=== PATIENT | male | born 1980 | race Caucasian/White ===

== ENCOUNTER 2016-06-23 16:27 | Emergency (ER) | payer OTHER ==
[~2016-06-23] VITALS: Wt 91.0 kg
[~2016-06-23 16:27] MED LIST: ALPR0.5T PO; AMO500 PO; BEN50 PO; BENA20TA65 PO; CLOT30CR24 TOP; FLUO20CA22 PO; HYD25 PO; IBUP-1542 PO; LORA-441 PO; LORA10CA PO; PANT40TA4 PO; PRED20TA PO; RANI150T9 PO
[2016-06-23] MEDS ORDERED: NAPR-260 PO (17:21)
[2016-06-23] MEDS ORDERED: CETI10CA PO (17:21)
[2016-06-23] MEDS ORDERED: ACET500C5 PO (17:21)
[2016-06-23] MEDS ORDERED: OXYM30MI NASAL (17:23)
--- NOTE | 2016-06-23 18:16 | ERD ---
ER Documentation Chief Complaint Date/Time DATE: 06/23/16 TIME: 18:10 Chief Complaint RIGHT SIDE THROAT PAIN FOR THE PAST FEW DAYS NO FEVERS. HPI Patient is a 35-year-old male with a history of anxiety who presents to the ED with right-sided throat pain x 4 days. He states that he had a cough, runny nose this month. He denies difficulty swallowing or pain with swallowing. He denies difficulty breathing. He denies difficulty speaking. He states that he feels a lump on the right side of his throat. He denies fever or chills. He denies ear pain, headache, dizziness. He denies abdominal pain, nausea, vomiting or diarrhea. He also complains of nasal congestion in the mornings. And slight Jose Juan itchy throat. He denies chest pain, cough or shortness of breath. No other complaints today. ROS All systems reviewed and are negative except as per history of present illness. Medications Home Meds Active Scripts Oxymetazoline Hcl ([place]) 30 Ml Mist, 2 SPRAYS NASAL BID, #1 BOTTLE Prov:VIRGILIO FERRIS PA-C 06/23/16 Acetaminophen* (Tylophen*) 500 Mg Capsule, 1 CAP PO Q6H Y for PAIN AND OR ELEVATED TEMP, #20 CAP Prov:VIRGILIO FERRIS PA-C 06/23/16 Naproxen* (Naprosyn*) 500 Mg Tablet, 500 MG PO BID Y for PAIN AND/OR INFLAMMATION, #30 TAB Prov:VIRGILIO FERRIS PA-C 06/23/16 Cetirizine Hcl* (Zyrtec*) 10 Mg Capsule, 10 MG PO DAILY, #30 TAB.CHEW Prov:VIRGILIO FERRIS PA-C 06/23/16 Clotrimazole* (Clotrimazole* AF) 1% - 30 Gm Cream.gm., 1 APPLIC TOP BID for 7 Days, TUB Prov:DAVE LARIOS PA-C 05/03/16 Ibuprofen* (Motrin*) 600 Mg Tab, 600 MG PO Q6H Y for PAIN AND OR ELEVATED TEMP, #30 TAB Prov:KRYSTLE HERRERA NP 04/22/16 Amoxicillin* (Amoxicillin*) 500 Mg Cap, 500 MG PO TID for 7 Days, CAP Prov:OCTAVIA RACHEL PA-C 02/21/16 Ibuprofen* (Motrin*) 600 Mg Tab, 600 MG PO Q6, #20 TAB Prov:OCTAVIA RACHEL PA-C 02/21/16 Ibuprofen* (Motrin*) 600 Mg Tab, 600 MG PO Q6, #20 TAB Prov:OCTAVIA RACHEL PA-C 01/23/16 Diphenhydramine Hcl* (Benadryl*) 50 Mg Cap, 50 MG PO Q6H Y for ALLERGIC REACTION , #30 CAP Prov:OLEKSANDRNADEEN DO 07/20/15 Ranitidine Hcl* (Zantac*) 150 Mg Tablet, 150 MG PO BID for EPIGASTRIC PAIN, #30 TAB Prov:OLEKSANDR,NADEEN 07/20/15 Prednisone* (Prednisone*) 20 Mg Tab, 60 MG PO DAILY, #15 TAB take 60 mg for 3 days, then 40 mg for 4 days, then 30 mg for 3 days. Prov:NADEEN LEGGETT DO 07/20/15 Benazepril Hcl* (Lotensin*) 20 Mg Tablet, 20 MG PO DAILY, #30 TAB Prov:DEVIN WYATT MD 06/21/15 Fluoxetine Hcl* (Fluoxetine Hcl*) 20 Mg Capsule, 20 MG PO DAILY, #30 CAP Prov:DEVIN WYATT MD 06/21/15 Lorazepam* (Ativan*) 0.5 Mg Tablet, 0.5 MG PO BID, #14 TAB Prov:DEVIN WYATT MD 06/21/15 Hydrochlorothiazide* (Hydrochlorothiazide*) 25 Mg Tab, 25 MG PO DAILY, #30 TAB Prov:EDWINA MINOR MD 06/20/15 Alprazolam* (Xanax*) 0.5 Mg Tab, 0.5 MG PO Q8H Y for ANXIETY, #10 TAB Prov:CAROLYN DOCKERY PA-C 06/14/15 Loratadine* (Claritin*) 10 Mg Capsule, 10 MG PO DAILY, #30 CAP Prov:KRYSTLE HERRERA NP 05/01/15 Reported Medications Pantoprazole (Protonix) 40 Mg Tabec, 40 PO DAILY, TAB 06/21/15 Allergies Allergies: Coded Allergies: paroxetine (Verified Allergy, Unknown, headache, 05/03/16) PMhx/Soc History of Surgery: No Anesthesia Reaction: No Hx Neurological Disorder: No Hx Respiratory Disorders: No Hx Cardiac Disorders: No Hx Psychiatric Problems: Yes (DEPRESSION, ANXIETY) Hx Alcohol Use: No Hx Substance Use: No Hx Tobacco Use: Yes FmHx Family History: No coronary disease, No diabetes, No other Physical Exam Vitals Vital Signs Date Time Temp Pulse Resp B/P Pulse Ox O2 Delivery O2 Flow Rate FiO2 06/23/16 16:35 98.1 74 20 137/75 98 Physical Exam GENERAL: Well-developed, well-nourished male. Appears in no acute distress. HEAD: Normocephalic, atraumatic. EYES: Pupils are equally reactive bilaterally. EOMs grossly intact. No conjunctival erythema. ENT: Moist mucous membranes. No uvula deviation. No kissing tonsils. No exudates. NECK: Supple. No or thyromegaly. No meningismus. negative kernig. negative brudinski. tenderness to the right side of his throat. no ertyema, no exudates. no signs of infection. no tooth pain. swollen submandibular lymph node. LUNG: Clear to auscultation bilaterally. No rhonchi, wheezing, rales or coarse breath sounds. HEART: Regular rate and rhythm. No murmurs, rubs or gallops. ABDOMEN: No scars, ecchymosis or rashes noted. Soft, nontender, and nondistended. Positive bowel sounds in all four quadrants. No rebound tenderness , no guarding. (-) McBurneys point tenderness. No CVA tenderness. BACK: No midline tenderness. Extremities: Equal pulses bilaterally. No peripheral clubbing, cyanosis or edema. No unilateral leg swelling. NEUROLOGIC: Alert and oriented. Moving all four extremities. 5/5 strength in all extremities. Normal speech. Steady gait. SKIN: Normal color. Warm and dry. No rashes or lesions. Capillary refill < 2 seconds Procedures/MDM ER COURSE: I kept the patient and/or family informed of laboratory and diagnostic imaging results throughout the emergency room course. MEDICAL DECISION MAKING: This is a 35-year-old male who presents with neck pain. Vital signs were reviewed. Patient is afebrile. Patient is not hypoxic. Patient likely has a swollen submandibular node. Patient has a viral URI. Low suspicion for pneumonia, PE, pneumothorax, ACS, epiglottitis, obstruction, TB, pertussis, meningitis, sepsis. Low suspicion for dislocation, fracture, epidural abscess, herniation, osteomyelitis, meningitis, neurological deficit. Low suspicion for peritonsillar abscess, strep pharyngitis, mononucleosis, dental abscess. I do not think a CT scan is warranted at this time as patient is afebrile and I have low suspicion for abscess. DISCHARGE: At this time, patient is stable for discharge and outpatient management with no new complaints during the ER course. Patient was sent home with Zyrtec, nasal spray, Tylenol, Naprosyn. Patient will be discharged home with instructions to recheck for new or worsening symptoms such as fever, nausea, weakness, LOC and to follow up with primary care in the next 1-2 days. Patient was advised to return to the ER for any new or worsening symptoms. Plan was discussed and patient and/or family understands and agrees. Home instructions were given. Departure Diagnosis: Primary Impression: Lymphadenopathy Additional Impression: Sore throat Condition: Stable Patient Instructions: When You Have a Sore Throat, When Your Child Has Swollen Lymph Nodes Additional Instructions: Call your primary care doctor TOMORROW for an appointment during the next 1-2 days.See the doctor sooner or return here if your condition worsens before your appointment time. VIRGILIO FERRIS PA-C Jun 23, 2016 18:16
== END 2016-06-23 17:23 | disposition home or self-care (01) ==
LOC: FTE 16:27 → E/R 17:23
DX: R59.1 Generalized enlarged lymph nodes (principal); J02.9 Acute pharyngitis, unspecified; Z72.0 Tobacco use
CPT/HCPCS: 99283

== ENCOUNTER 2016-08-05 07:56 | Emergency (ER) | payer OTHER ==
[~2016-08-05] VITALS: Ht 175.3 cm; Wt 92.2 kg
[~2016-08-05 07:56] MED LIST changes: +ACET500C5 PO; +CETI10CA PO; +NAPR-260 PO; +OXYM30MI NASAL
[2016-08-05 07:57] VITALS: Ht 175.3 cm; Wt 92.2 kg
[2016-08-05] MEDS ORDERED: SODI30SP2 NS (08:24)
[2016-08-05] MEDS ORDERED: LORA-186 PO (08:24)
[2016-08-05] MEDS ORDERED: FLUT9.9S NASAL (08:24)
--- NOTE | 2016-08-05 08:29 | ERD ---
ER Documentation Chief Complaint Date/Time DATE: 08/05/16 TIME: 08:26 Chief Complaint sore thraot x 1 wk HPI This is a 36-year-old male with a history of anxiety presenting to the emergency department for complaining of a sore throat for the past week. Patient rates the pain moderate in severity, and states that it is worse in the morning. Patient admits to having cough and coughing up phlegm in the mornings. Patient denies any fevers. He states that he has tried naproxen, ibuprofen and Tylenol without any relief. ROS All systems reviewed and are negative except as per history of present illness. Medications Home Meds Active Scripts Sodium Chloride (Saline Nasal [place]) 30 Ml [place], 30 ML NS BID, #1 SPRAY Prov:SURY HOFFMAN PA-C 08/05/16 Fluticasone Propionate (Flonase Allergy Relief) 9.9 Ml [place].susp, 1 SPRAY NASAL BID for 14 Days, #1 BOTTLE TO EACH NOSTRIL Prov:SURY HOFFMAN PA-C 08/05/16 Loratadine* (Claritin*) 10 Mg Tablet, 10 MG PO DAILY, #30 TAB Prov:SURY HOFFMAN PA-C 08/05/16 Oxymetazoline Hcl (Nasal [place]) 30 Ml Mist, 2 SPRAYS NASAL BID, #1 BOTTLE Prov:VIRGILIO FERRIS PA-C 06/23/16 Acetaminophen* (Tylophen*) 500 Mg Capsule, 1 CAP PO Q6H Y for PAIN AND OR ELEVATED TEMP, #20 CAP Prov:VIRGILIO FERRIS PA-C 06/23/16 Naproxen* (Naprosyn*) 500 Mg Tablet, 500 MG PO BID Y for PAIN AND/OR INFLAMMATION, #30 TAB Prov:VIRGILIO FERRIS PA-C 06/23/16 Cetirizine Hcl* (Zyrtec*) 10 Mg Capsule, 10 MG PO DAILY, #30 TAB.CHEW Prov:VIRGILIO FERRIS PA-C 06/23/16 Clotrimazole* (Clotrimazole* AF) 1% - 30 Gm Cream.gm., 1 APPLIC TOP BID for 7 Days, TUB Prov:DAVE LARIOS PA-C 05/03/16 Ibuprofen* (Motrin*) 600 Mg Tab, 600 MG PO Q6H Y for PAIN AND OR ELEVATED TEMP, #30 TAB Prov:KRYSTLE HERRERA NP 04/22/16 Amoxicillin* (Amoxicillin*) 500 Mg Cap, 500 MG PO TID for 7 Days, CAP Prov:OCTAVIA RACHEL PA-C 02/21/16 Ibuprofen* (Motrin*) 600 Mg Tab, 600 MG PO Q6, #20 TAB Prov:OCTAVIA RACHEL PA-C 02/21/16 Ibuprofen* (Motrin*) 600 Mg Tab, 600 MG PO Q6, #20 TAB Prov:OCTAVIA RACHEL PA-C 01/23/16 Diphenhydramine Hcl* (Benadryl*) 50 Mg Cap, 50 MG PO Q6H Y for ALLERGIC REACTION , #30 CAP Prov:NADEEN LEGGETT DO 07/20/15 Ranitidine Hcl* (Zantac*) 150 Mg Tablet, 150 MG PO BID for EPIGASTRIC PAIN, #30 TAB Prov:NADEEN LEGGETT DO 07/20/15 Prednisone* (Prednisone*) 20 Mg Tab, 60 MG PO DAILY, #15 TAB take 60 mg for 3 days, then 40 mg for 4 days, then 30 mg for 3 days. Prov:NADEEN LEGGETT DO 07/20/15 Benazepril Hcl* (Lotensin*) 20 Mg Tablet, 20 MG PO DAILY, #30 TAB Prov:DEVIN WYATT MD 06/21/15 Fluoxetine Hcl* (Fluoxetine Hcl*) 20 Mg Capsule, 20 MG PO DAILY, #30 CAP Prov:DEVIN WYATT MD 06/21/15 Lorazepam* (Ativan*) 0.5 Mg Tablet, 0.5 MG PO BID, #14 TAB Prov:DEVIN WYATT MD 06/21/15 Hydrochlorothiazide* (Hydrochlorothiazide*) 25 Mg Tab, 25 MG PO DAILY, #30 TAB Prov:EDWINA MINOR MD 06/20/15 Alprazolam* (Xanax*) 0.5 Mg Tab, 0.5 MG PO Q8H Y for ANXIETY, #10 TAB Prov:CAROLYN DOCKERY PA-C 06/14/15 Loratadine* (Claritin*) 10 Mg Capsule, 10 MG PO DAILY, #30 CAP Prov:KRYSTLE HERRERA [employer] 05/01/15 Reported Medications Pantoprazole (Protonix) 40 Mg Tabec, 40 PO DAILY, TAB 06/21/15 Allergies Allergies: Coded Allergies: paroxetine (Verified Allergy, Unknown, headache, 08/05/16) PMhx/Soc History of Surgery: No Anesthesia Reaction: No Hx Neurological Disorder: No Hx Respiratory Disorders: No Hx Cardiac Disorders: No Hx Psychiatric Problems: Yes (DEPRESSION, ANXIETY) Hx Alcohol Use: No Hx Substance Use: No Hx Tobacco Use: Yes Smoking Status: Current every day smoker Physical Exam Vitals Vital Signs Date Time Temp Pulse Resp B/P Pulse Ox O2 Delivery O2 Flow Rate FiO2 08/05/16 07:57 98.3 69 19 143/101 93 Physical Exam GENERAL: well-developed/well-nourished, in no apparent distress, non-toxic appearing HEAD: NC/AT, no swelling noted in frontal or maxillary areas EARS: bilateral tympanic membrane is intact without erythema or effusion NARES:congested THROAT: oropharynx non-erythematous without exudates, no tonsil enlargement, post nasal drip EYES: Conjunctiva normal NECK: Supple, no lymphadenopathy PULM: CTA bilaterally, no rales, rhonchi, or wheezing heard CV: Normal S1S2, RRR, good capillary refill GI: Soft, non-distended, normal bowel sounds, non-tender BACK: No midline tenderness, no masses EXT No clubbing, cyanosis, or edema NEURO: Alert and Orientated SKIN: Intact, normal turgor PSYCH: Normal mood and mentation Procedures/MDM This is a 36-year-old male presenting to the emergency department complaining of sore throat for the past week. This is likely due to viral versus allergic upper respiratory infection with postnasal drip. On examination patient did not have any evidence of strep pharyngitis, peritonsillar abscess, retropharyngeal abscess, Elliott's angina. Patient is afebrile, speaking clearly and appears well. Patient is suitable to follow-up with his primary care physician for further action management. Prescriptions Claritin, Flonase and saline nasal spray was provided. Discussed to continue ibuprofen as needed. Discussed return to the ER for any worsening signs or symptoms. Patient understands and agrees with this plan Departure Diagnosis: Primary Impression: URI (upper respiratory infection) URI type: unspecified viral URI Qualified Code: J06.9 - Viral upper respiratory tract infection Additional Impression: Post-nasal drip Condition: Stable Patient Instructions: Self-Care for Sinusitis, Uri, Viral, No Abx (Adult) Additional Instructions: FOLLOW UP WITH YOUR PRIMARY CARE PHYSICIAN TOMORROW.Return to this facility if you are not improving as expected. Take all medicines as directed. Return to this facility if you are not improving as expected. SURY HOFFMAN PA-C Aug 05, 2016 08:29
== END 2016-08-05 08:29 | disposition home or self-care (01) ==
LOC: FTE 07:56
DX: J06.9 Acute upper respiratory infection, unspecified (principal); R09.82 Postnasal drip; F17.210 Nicotine dependence, cigarettes, uncomplicated
CPT/HCPCS: 99283

== ENCOUNTER 2016-08-29 15:07 | Emergency (ER) | payer OTHER ==
[~2016-08-29] VITALS: Ht 170.2 cm; Wt 80.0 kg
[~2016-08-29 15:07] MED LIST changes: +FLUT9.9S NASAL; +LORA-186 PO; +SODI30SP2 NS
[2016-08-29 15:12] VITALS: Ht 170.2 cm; Wt 80.0 kg
[2016-08-29] MEDS ORDERED: VIT1TABL28 PO (16:00)
--- NOTE | 2016-08-29 16:11 | ERD ---
ER Documentation Chief Complaint Date/Time DATE: 08/29/16 TIME: 16:03 Chief Complaint etoh last night now feels anxious HPI 36-year-old otherwise healthy male presents the emergency department complaining of anxiety which she describes as a racing heart and headache. Patient states he experiences these symptoms every times he drinks alcohol. Patient states that last night he drank 3, 40 ounce bottles of beer and woke up this morning with a headache, cold sweat and racing heart. Patient denies any prior cardiac history but does note a history of anxiety in the past for which she has been prescribed Prozac. Patient states he was successfully able to wean himself off Prozac last year and since that time his anxiety has remained under control. He states the only time he experiences anxiety now is when he drinks alcohol has a hangover. Patient denies any chest pain, shortness of breath, calf or leg swelling, cardiac history. Patient denies any sudden due to cardiac disease among his immediate family. Patient denies any suicidal thoughts and states he does not feel depressed. ROS All systems reviewed and are negative except as per history of present illness. Medications Home Meds Active Scripts Vit B Cmplx 3/Fa/Vit C/Biotin (VOL-CARE RX TABLET) 1 Each Tablet, 1 EACH PO DAILY for 30 Days, TAB Prov:RUDOLPH MARADIAGA PA-C 08/29/16 Sodium Chloride (Saline Nasal [place]) 30 Ml [place], 30 ML NS BID, #1 SPRAY Prov:SURY HOFFMAN PA-C 08/05/16 Fluticasone Propionate (Flonase Allergy Relief) 9.9 Ml [place].susp, 1 SPRAY NASAL BID for 14 Days, #1 BOTTLE TO EACH NOSTRIL Prov:SURY HOFFMAN PA-C 08/05/16 Loratadine* (Claritin*) 10 Mg Tablet, 10 MG PO DAILY, #30 TAB Prov:SURY HOFFMAN PA-C 08/05/16 Oxymetazoline Hcl (Nasal [place]) 30 Ml Mist, 2 SPRAYS NASAL BID, #1 BOTTLE Prov:VIRGILIO FERRIS PA-C 06/23/16 Acetaminophen* (Tylophen*) 500 Mg Capsule, 1 CAP PO Q6H Y for PAIN AND OR ELEVATED TEMP, #20 CAP Prov:VIRGILIO FERRIS PA-C 06/23/16 Naproxen* (Naprosyn*) 500 Mg Tablet, 500 MG PO BID Y for PAIN AND/OR INFLAMMATION, #30 TAB Prov:VIRGILIO FERRIS PA-C 06/23/16 Cetirizine Hcl* (Zyrtec*) 10 Mg Capsule, 10 MG PO DAILY, #30 TAB.CHEW Prov:VIRGILIO FERRIS PA-C 06/23/16 Clotrimazole* (Clotrimazole* AF) 1% - 30 Gm Cream.gm., 1 APPLIC TOP BID for 7 Days, TUB Prov:DAVE LARIOS PA-C 05/03/16 Ibuprofen* (Motrin*) 600 Mg Tab, 600 MG PO Q6H Y for PAIN AND OR ELEVATED TEMP, #30 TAB Prov:KRYSTLE HERRERA NP 04/22/16 Amoxicillin* (Amoxicillin*) 500 Mg Cap, 500 MG PO TID for 7 Days, CAP Prov:OCTAVIA RACHEL PA-C 02/21/16 Ibuprofen* (Motrin*) 600 Mg Tab, 600 MG PO Q6, #20 TAB Prov:OCTAVIA RACHEL PA-C 02/21/16 Ibuprofen* (Motrin*) 600 Mg Tab, 600 MG PO Q6, #20 TAB Prov:OCTAVIA RACHEL PA-C 01/23/16 Diphenhydramine Hcl* (Benadryl*) 50 Mg Cap, 50 MG PO Q6H Y for ALLERGIC REACTION , #30 CAP Prov:NADEEN LEGGETT DO 07/20/15 Ranitidine Hcl* (Zantac*) 150 Mg Tablet, 150 MG PO BID for EPIGASTRIC PAIN, #30 TAB Prov:NADEEN LEGGETT DO 07/20/15 Prednisone* (Prednisone*) 20 Mg Tab, 60 MG PO DAILY, #15 TAB take 60 mg for 3 days, then 40 mg for 4 days, then 30 mg for 3 days. Prov:NADEEN LEGGETT DO 07/20/15 Benazepril Hcl* (Lotensin*) 20 Mg Tablet, 20 MG PO DAILY, #30 TAB Prov:DEVIN WYATT MD 06/21/15 Fluoxetine Hcl* (Fluoxetine Hcl*) 20 Mg Capsule, 20 MG PO DAILY, #30 CAP Prov:DEVIN WYATT MD 06/21/15 Lorazepam* (Ativan*) 0.5 Mg Tablet, 0.5 MG PO BID, #14 TAB Prov:DEVIN WYATT MD 06/21/15 Hydrochlorothiazide* (Hydrochlorothiazide*) 25 Mg Tab, 25 MG PO DAILY, #30 TAB Prov:EDWINA MINOR MD 06/20/15 Alprazolam* (Xanax*) 0.5 Mg Tab, 0.5 MG PO Q8H Y for ANXIETY, #10 TAB Prov:CAROLYN DOCKERY PA-C 06/14/15 Loratadine* (Claritin*) 10 Mg Capsule, 10 MG PO DAILY, #30 CAP Prov:KRYSTLE HERRERA NP 05/01/15 Reported Medications Pantoprazole (Protonix) 40 Mg Tabec, 40 PO DAILY, TAB 06/21/15 Allergies Allergies: Coded Allergies: paroxetine (Verified Allergy, Unknown, headache, 08/05/16) PMhx/Soc History of Surgery: No Anesthesia Reaction: No Hx Neurological Disorder: No Hx Respiratory Disorders: No Hx Cardiac Disorders: No Hx Psychiatric Problems: Yes (DEPRESSION, ANXIETY) Hx Alcohol Use: No Hx Substance Use: No Hx Tobacco Use: Yes Physical Exam Vitals Vital Signs Date Time Temp Pulse Resp B/P Pulse Ox O2 Delivery O2 Flow Rate FiO2 08/29/16 15:12 98.1 99 18 132/90 99 Physical Exam Const: Well-developed, well-nourished, in no acute distress Head: Atraumatic Eyes: Normal Conjunctiva ENT: Normal External Ears, Nose and Mouth. Neck: Full range of motion..~ No meningismus. Resp: Clear to auscultation bilaterally Cardio: Regular rate and rhythm, no murmurs Abd: Soft, non tender, non distended. Normal bowel sounds Skin: No petechiae or rashes Back: No midline or flank tenderness Ext: No cyanosis, or edema Neur: Awake and alert Psych: Normal Mood and Affect Procedures/MDM Patient seen and evaluated in the flu track today EKG: Rate/Rhythm: Normal Sinus Rhythm QRS, ST, T-waves: No changes consistent w/ acute ischemia Impression: No evidence of ischemia or arrhythmia 36-year-old male presents with complaint of racing heart, and headache after a night of drinking last night. EKG unremarkable for any evidence of acute ischemia. Patient's heart score is 0. I have a low suspicion for acute coronary syndrome, DVT, PE, pneumonia, serious bacterial infection, or sepsis. The patient's headache is unlikely related to serious etiology. The patient does not exhibit any clinical signs or symptoms, and has no risk factors to suggest headache etiology such as subarachnoid hemorrhage, acute vertebral or carotid dissection, intracranial mass, epidural, subdural hematoma, dural venous sinus thrombosis, giant cell arteritis, or pseudotumor cerebri. Patient' s vital signs rechecked and patient was non-tachycardic, normotensive, afebrile and non-hypoxic prior to discharge. Patient presented with normal mood and affect and did not appear to be depressed. Patient denied any thoughts of suicide. Patient instructed to treat his symptoms with Pedialyte, multivitamin and Motrin when he drinks alcohol. I counseled the patient on risks and red flags associated with alcohol use. Based on patient's history of present illness and physical examination the decision was made to discharge. There is no evidence of life threatening injuries or illnesses at this time. On re-examination, patient resting in no distress, stable vital signs, reports feeling better and safe for discharge with outpatient follow up with PMD in 1-2 days. Patient given return precautions. Departure Diagnosis: Primary Impression: Anxiety Additional Impressions: Headache Headache type: unspecified Headache chronicity pattern: acute headache Intractability: not intractable Qualified Code: R51 - Acute nonintractable headache, unspecified headache type Fast heart beat Alcohol use Anxiety disorder Anxiety disorder type: generalized anxiety disorder Qualified Code: F41.1 - Generalized anxiety disorder Condition: Stable Patient Instructions: Anxiety Reaction, Dehydration (6Y-Adult) Additional Instructions: Call your primary care doctor TOMORROW for an appointment during the next 1-2 days.See the doctor sooner or return here if your condition worsens before your appointment time. RUDOLPH MARADIAGA PA-C Aug 29, 2016 16:11
== END 2016-08-29 16:13 | disposition home or self-care (01) ==
LOC: E/R 15:07
DX: F41.9 Anxiety disorder, unspecified (principal); R51 Headache; R00.0 Tachycardia, unspecified; F10.99 Alcohol use, unspecified with unspecified alcohol-induced disorder; F41.1 Generalized anxiety disorder; F17.210 Nicotine dependence, cigarettes, uncomplicated
CPT/HCPCS: 93005; Z7502

== ENCOUNTER 2016-09-11 16:44 | Emergency (ER) | payer OTHER ==
[~2016-09-11] VITALS: Ht 175.3 cm; Wt 92.0 kg
[~2016-09-11 16:44] MED LIST changes: +VIT1TABL28 PO
[2016-09-11 16:56] VITALS: Ht 175.3 cm; Wt 92.0 kg
[2016-09-11] MEDS ORDERED: KETOROLAC 30 MG INJ IM STA (17:36)
[2016-09-11] MEDS ORDERED: LORA10TA3 PO (17:37)
[2016-09-11] MEDS ORDERED: TRAM50TA2 PO (17:37)
--- NOTE | 2016-09-11 17:51 | ERD ---
ER Documentation Chief Complaint Date/Time DATE: 09/11/16 TIME: 17:48 Chief Complaint pt bib self with c/o sore throat x 3 days , cough HPI 36-year-old man complains of left-sided sore throat 3 days. Patient has a history of anxiety and has been here multiple times previously for sore throat. He is requesting analgesics and states he's used ibuprofen, naproxen, Tylenol at home without relief. Patient denies suicidal homicidal ideation, no changes in his voice, no fevers or chills, no vomiting or diarrhea. ROS All systems reviewed and are negative except as per history of present illness. Medications Home Meds Active Scripts Loratadine* (Loratadine*) 10 Mg Tablet, 10 MG PO DAILY for NASAL CONGESTION, # 15 TAB Prov:EDWINA MINOR MD 09/11/16 Tramadol HCl (Tramadol HCl) 50 Mg Tablet, 50 MG PO TID for PAIN LEVEL 6-10, #12 TAB Prov:EDWINA MINOR MD 09/11/16 Vit B Cmplx 3/Fa/Vit C/Biotin (VOL-CARE RX TABLET) 1 Each Tablet, 1 EACH PO DAILY for 30 Days, TAB Prov:RUDOLPH MARADIAGA PA-C 08/29/16 Sodium Chloride (Saline Nasal [place]) 30 Ml [place], 30 ML NS BID, #1 SPRAY Prov:SURY HOFFMAN PA-C 08/05/16 Fluticasone Propionate (Flonase Allergy Relief) 9.9 Ml [place].susp, 1 SPRAY NASAL BID for 14 Days, #1 BOTTLE TO EACH NOSTRIL Prov:SURY HOFFMAN PA-C 08/05/16 Loratadine* (Claritin*) 10 Mg Tablet, 10 MG PO DAILY, #30 TAB Prov:SURY HOFFMAN PA-C 08/05/16 Oxymetazoline Hcl (Nasal [place]) 30 Ml Mist, 2 SPRAYS NASAL BID, #1 BOTTLE Prov:VIRGILIO FERRIS PA-C 06/23/16 Acetaminophen* (Tylophen*) 500 Mg Capsule, 1 CAP PO Q6H Y for PAIN AND OR ELEVATED TEMP, #20 CAP Prov:VIRGILIO FERRIS PA-C 06/23/16 Naproxen* (Naprosyn*) 500 Mg Tablet, 500 MG PO BID Y for PAIN AND/OR INFLAMMATION, #30 TAB Prov:VIRGILIO FERRIS PA-C 06/23/16 Cetirizine Hcl* (Zyrtec*) 10 Mg Capsule, 10 MG PO DAILY, #30 TAB.CHEW Prov:VIRGILIO FERRIS PA-C 06/23/16 Clotrimazole* (Clotrimazole* AF) 1% - 30 Gm Cream.gm., 1 APPLIC TOP BID for 7 Days, TUB Prov:DAVE LARIOS PA-C 05/03/16 Ibuprofen* (Motrin*) 600 Mg Tab, 600 MG PO Q6H Y for PAIN AND OR ELEVATED TEMP, #30 TAB Prov:KRYSTLE HERRERA NP 04/22/16 Amoxicillin* (Amoxicillin*) 500 Mg Cap, 500 MG PO TID for 7 Days, CAP Prov:OCTAVIA RACHEL PA-C 02/21/16 Ibuprofen* (Motrin*) 600 Mg Tab, 600 MG PO Q6, #20 TAB Prov:OCTAVIA RACHEL PA-C 02/21/16 Ibuprofen* (Motrin*) 600 Mg Tab, 600 MG PO Q6, #20 TAB Prov:OCTAVIA RACHEL PA-C 01/23/16 Diphenhydramine Hcl* (Benadryl*) 50 Mg Cap, 50 MG PO Q6H Y for ALLERGIC REACTION , #30 CAP Prov:NADEEN LEGGETT DO 07/20/15 Ranitidine Hcl* (Zantac*) 150 Mg Tablet, 150 MG PO BID for EPIGASTRIC PAIN, #30 TAB Prov:NADEEN LEGGETT DO 07/20/15 Prednisone* (Prednisone*) 20 Mg Tab, 60 MG PO DAILY, #15 TAB take 60 mg for 3 days, then 40 mg for 4 days, then 30 mg for 3 days. Prov:NADEEN LEGGETT DO 07/20/15 Benazepril Hcl* (Lotensin*) 20 Mg Tablet, 20 MG PO DAILY, #30 TAB Prov:DEVIN WYATT MD 06/21/15 Fluoxetine Hcl* (Fluoxetine Hcl*) 20 Mg Capsule, 20 MG PO DAILY, #30 CAP Prov:DEVIN WYATT MD 06/21/15 Lorazepam* (Ativan*) 0.5 Mg Tablet, 0.5 MG PO BID, #14 TAB Prov:DEVIN WYATT MD 06/21/15 Hydrochlorothiazide* (Hydrochlorothiazide*) 25 Mg Tab, 25 MG PO DAILY, #30 TAB Prov:EDWINA MINOR MD 06/20/15 Alprazolam* (Xanax*) 0.5 Mg Tab, 0.5 MG PO Q8H Y for ANXIETY, #10 TAB Prov:CAROLYN DOCKERY PA-C 06/14/15 Loratadine* (Claritin*) 10 Mg Capsule, 10 MG PO DAILY, #30 CAP Prov:KRYSTLE HERRERA NP 05/01/15 Reported Medications Pantoprazole (Protonix) 40 Mg Tabec, 40 PO DAILY, TAB 06/21/15 Allergies Allergies: Coded Allergies: paroxetine (Verified Allergy, Unknown, headache, 08/05/16) PMhx/Soc Chronic anxiety, chronic pharyngitis, chronic pain History of Surgery: No Anesthesia Reaction: No Hx Neurological Disorder: No Hx Respiratory Disorders: No Hx Cardiac Disorders: No Hx Psychiatric Problems: Yes (DEPRESSION, ANXIETY) Hx Alcohol Use: No Hx Substance Use: No Hx Tobacco Use: Yes Smoking Status: Never smoker Physical Exam Vitals Vital Signs Date Time Temp Pulse Resp B/P Pulse Ox O2 Delivery O2 Flow Rate FiO2 09/11/16 16:56 98.9 76 18 141/92 100 Physical Exam GENERAL: Well-developed, well-nourished, well-hydrated, in no apparent distress , looks nontoxic in appearance HEENT: Moist mucous membranes, pink conjunctiva, no cervical spine tenderness or step-off deformities, no goiter, no jaundice or icterus, extraocular movements intact without pain. No submandibular induration, and no pharyngeal erythema NEURO: Alert and oriented 3, cranial nerves II through XII intact bilaterally, pupils equal round reactive to light, no focal deficits or facial asymmetry, sensation intact distally Strength 5/5 in upper and lower extremities bilaterally CARDIAC: Regular rate and rhythm, no murmurs rubs or gallops LUNGS: Clear bilaterally no wheezing crackles or stridor ABDOMEN: Soft nontender, no guarding, no rigidity, no rebound, no psoas sign no obturator sign. Normoactive bowel sounds SKIN: Warm and dry to touch, no abrasions, contusions, or hematomas, no lacerations, no ecchymosis, no target lesions, and without ulcers EXTREMITIES: No clubbing cyanosis or edema, calves are bilaterally symmetrical, no Homans sign, no popliteal cord sign. Distal pulses equal and bilateral PSYCH: Normal affect without agitation or irritability Results 24 hrs Current Medications Medications (Trade) Dose Ordered Sig/Prashant Route PRN Reason Start Time Stop Time Status Last Admin Dose Admin Ketorolac Tromethamine (Toradol) 30 mg ONCE STAT IM 09/11/16 17:36 09/11/16 17:37 DC 09/11/16 17:46 Procedures/MDM I administered Toradol 30 mg intramuscular injection with good pain relief. I recommended patient follow-up with his PMD for continued outpatient management and control of anxiety. Differential diagnoses considered, included but not limited to carotid artery injury, bacterial pharyngitis, peritonsillar abscess, aortic dissection, abdominal aortic aneurysm, sepsis, stroke, meningitis, encephalitis, pneumonia, appendicitis, cholecystitis, bowel obstruction, pyelonephritis, nephrolithiasis , cystitis, as well as metabolic, hematologic, and electrolyte abnormalities. As well as abscess, cellulitis, fractures, and dislocations. Patient feels much better at this time, and vital signs are normal, symptoms have improved. I did give strict instructions to return to the ED if symptoms continue or worsen, patient will otherwise follow-up with primary care physician. Patient understood instructions and agreed to plan. Departure Diagnosis: Primary Impression: Pharyngitis Pharyngitis/tonsillitis etiology: unspecified etiology Qualified Code: J02.9 - Pharyngitis, unspecified etiology Additional Impression: Globus hystericus Condition: Good Patient Instructions: Pharyngitis, Viral EDWINA MINOR MD Sep 11, 2016 17:51
[2016-09-12] MEDS ORDERED: IBUP-1542 PO (21:12)
[2016-09-12] MEDS ORDERED: ONDA4TAB14 PO (21:13)
== END 2016-09-11 17:47 | disposition home or self-care (01) ==
LOC: FTE 16:44
DX: J02.9 Acute pharyngitis, unspecified (principal); F45.8 Other somatoform disorders
CPT/HCPCS: 96372; J1885; Z7502

== ENCOUNTER 2016-09-12 20:41 | Emergency (ER) | payer OTHER ==
[~2016-09-12] VITALS: Ht 172.7 cm; Wt 93.0 kg
[~2016-09-12 20:41] MED LIST changes: +LORA10TA3 PO; +TRAM50TA2 PO
[2016-09-12 21:03] VITALS: Ht 172.7 cm; Wt 93.0 kg
[2016-09-12] MEDS ORDERED: IBUP-1542 PO (21:12)
[2016-09-12] MEDS ORDERED: ONDA4TAB14 PO (21:13)
--- NOTE | 2016-09-12 21:17 | ERD ---
ER Documentation Chief Complaint Date/Time DATE: 09/12/16 TIME: 21:14 Chief Complaint Pt with ST 3 days wants to change his pain medicine. HPI Patient is a 36-year-old male who presents to the emergency department for medication change. Patient states he was seen here yesterday for throat pain. Patient was prescribed tramadol at that time. Patient states the tramadol is making his throat pain worse. Patient is requesting he receive ibuprofen 600 mg instead. Patient denies any drooling, trismus, hyperextension of his neck. Patient denies any fevers, chills, vomiting, abdominal pain, cough, rhinorrhea, loss consciousness. Patient states he occasionally feels nauseous and requesting a prescription for Zofran at this time. ROS All systems reviewed and are negative except as per history of present illness. Medications Home Meds Active Scripts Ondansetron (Ondansetron Odt) 4 Mg Tab.rapdis, 4 MG PO Q6H Y for NAUSEA AND/OR VOMITING, #10 TAB Prov:DONTAE CARDENAS PA-C 09/12/16 Ibuprofen* (Motrin*) 600 Mg Tab, 600 MG PO Q6, #30 TAB Prov:DONTAE CARDENAS PA-C 09/12/16 Loratadine* (Loratadine*) 10 Mg Tablet, 10 MG PO DAILY for NASAL CONGESTION, # 15 TAB Prov:EDWINA MINOR MD 09/11/16 Tramadol HCl (Tramadol HCl) 50 Mg Tablet, 50 MG PO TID for PAIN LEVEL 6-10, #12 TAB Prov:EDWINA MINOR MD 09/11/16 Vit B Cmplx 3/Fa/Vit C/Biotin (VOL-CARE RX TABLET) 1 Each Tablet, 1 EACH PO DAILY for 30 Days, TAB Prov:RUDOLPH MARADIAGA PA-C 08/29/16 Sodium Chloride (Saline Nasal [place]) 30 Ml [place], 30 ML NS BID, #1 SPRAY Prov:SURY HOFFMAN PA-C 08/05/16 Fluticasone Propionate (Flonase Allergy Relief) 9.9 Ml [place].susp, 1 SPRAY NASAL BID for 14 Days, #1 BOTTLE TO EACH NOSTRIL Prov:SURY HOFFMAN PA-C 08/05/16 Loratadine* (Claritin*) 10 Mg Tablet, 10 MG PO DAILY, #30 TAB Prov:SURY HOFFMAN PA-C 08/05/16 Oxymetazoline Hcl (Nasal [place]) 30 Ml Mist, 2 SPRAYS NASAL BID, #1 BOTTLE Prov:VIRGILIO FERRIS PA-C 06/23/16 Acetaminophen* (Tylophen*) 500 Mg Capsule, 1 CAP PO Q6H Y for PAIN AND OR ELEVATED TEMP, #20 CAP Prov:VIRGILIO FERRIS PA-C 06/23/16 Naproxen* (Naprosyn*) 500 Mg Tablet, 500 MG PO BID Y for PAIN AND/OR INFLAMMATION, #30 TAB Prov:VIRGILIO FERRIS PA-C 06/23/16 Cetirizine Hcl* (Zyrtec*) 10 Mg Capsule, 10 MG PO DAILY, #30 TAB.CHEW Prov:VIRGILIO FERRIS PA-C 06/23/16 Clotrimazole* (Clotrimazole* AF) 1% - 30 Gm Cream.gm., 1 APPLIC TOP BID for 7 Days, TUB Prov:DAVE LARIOS PA-C 05/03/16 Ibuprofen* (Motrin*) 600 Mg Tab, 600 MG PO Q6H Y for PAIN AND OR ELEVATED TEMP, #30 TAB Prov:KRYSTLE HERRERA NP 04/22/16 Amoxicillin* (Amoxicillin*) 500 Mg Cap, 500 MG PO TID for 7 Days, CAP Prov:OCTAVIA RACHEL PA-C 02/21/16 Ibuprofen* (Motrin*) 600 Mg Tab, 600 MG PO Q6, #20 TAB Prov:OCTAVIA RACHEL PA-C 02/21/16 Ibuprofen* (Motrin*) 600 Mg Tab, 600 MG PO Q6, #20 TAB Prov:OCTAVIA RACHEL PA-C 01/23/16 Diphenhydramine Hcl* (Benadryl*) 50 Mg Cap, 50 MG PO Q6H Y for ALLERGIC REACTION , #30 CAP Prov:NADEEN LEGGETT DO 07/20/15 Ranitidine Hcl* (Zantac*) 150 Mg Tablet, 150 MG PO BID for EPIGASTRIC PAIN, #30 TAB Prov:NADEEN LEGGETT DO 07/20/15 Prednisone* (Prednisone*) 20 Mg Tab, 60 MG PO DAILY, #15 TAB take 60 mg for 3 days, then 40 mg for 4 days, then 30 mg for 3 days. Prov:NADEEN LEGGETT DO 07/20/15 Benazepril Hcl* (Lotensin*) 20 Mg Tablet, 20 MG PO DAILY, #30 TAB Prov:DEVIN WYATT MD 06/21/15 Fluoxetine Hcl* (Fluoxetine Hcl*) 20 Mg Capsule, 20 MG PO DAILY, #30 CAP Prov:DEVIN WYATT MD 06/21/15 Lorazepam* (Ativan*) 0.5 Mg Tablet, 0.5 MG PO BID, #14 TAB Prov:DEVIN WYATT MD 06/21/15 Hydrochlorothiazide* (Hydrochlorothiazide*) 25 Mg Tab, 25 MG PO DAILY, #30 TAB Prov:EDWINA MINOR MD 06/20/15 Alprazolam* (Xanax*) 0.5 Mg Tab, 0.5 MG PO Q8H Y for ANXIETY, #10 TAB Prov:CAROLYN DOCKERY PA-C 06/14/15 Loratadine* (Claritin*) 10 Mg Capsule, 10 MG PO DAILY, #30 CAP Prov:KRYSTLE HERRERA NP 05/01/15 Reported Medications Pantoprazole (Protonix) 40 Mg Tabec, 40 PO DAILY, TAB 06/21/15 Allergies Allergies: Coded Allergies: paroxetine (Verified Allergy, Unknown, headache, 08/05/16) PMhx/Soc History of Surgery: No Anesthesia Reaction: No Hx Neurological Disorder: No Hx Respiratory Disorders: No Hx Cardiac Disorders: No Hx Psychiatric Problems: Yes (DEPRESSION, ANXIETY) Hx Alcohol Use: No Hx Substance Use: No Hx Tobacco Use: Yes Physical Exam Vitals Vital Signs Date Time Temp Pulse Resp B/P Pulse Ox O2 Delivery O2 Flow Rate FiO2 09/12/16 21:03 98.3 81 20 148/84 96 Physical Exam GENERAL: Well-developed, well-nourished male. Appears in no acute distress. HEAD: Normocephalic, atraumatic. No deformities or ecchymosis. EYE: Pupils equal, round, and reactive to light. EOMs intact. No conjunctival erythema. No eye discharge. ENT: External ear without any masses or tenderness. Auditory canals clear bilaterally. TM visualized bilaterally, non-erythematous, non-bulging. Nasal mucosa pink with no discharge. Oropharynx is pink without any tonsillar erythema or exudates. No tonsillar swelling noted bilaterally no uvula deviation. No kissing tonsils. NECK: Supple. No meningismus. Normal ROM of the neck. LUNG: Clear to auscultation bilaterally. No rhonchi, wheezing, rales or coarse breath sounds. HEART: Regular rate and rhythm. No murmurs, rubs or gallops. EXTREMITES: Equal pulses bilaterally. No peripheral clubbing, cyanosis or edema. No unilateral leg swelling. NEUROLOGIC: Alert and oriented to person, place and time. Moving all four extremities. 5/5 strength in all extremities. Normal speech. Steady gait. SKIN: Normal color. Warm and dry. No rashes or lesions. Procedures/MDM MEDICAL DECISION MAKING: This is a 36-year-old male who presents with throat pain. Patient was seen here yesterday and diagnosed with viral pharyngitis. Patient is requesting a prescription for ibuprofen given that his prescription of tramadol he was given yesterday is causing him to have more pain. Vital signs were reviewed. Patient was afebrile. Patient was not hypoxic. The patient does not have trismus, muffled voice, uvula deviation, unilateral tonsillar swelling, or drooling. No signs of neck swelling or hyperextension of the neck noted. Given these findings , the patients presentation is most consistent with viral pharyngitis. I have a much lower clinical suspicion for epiglottitis, peritonsillar abscess, retropharyngeal abscess, Ludwigs angina, strep pharyngitis, dental abscess. PRESCRIPTIONS: Ibuprofen, Zofran DISCHARGE: At this time, patient is stable for discharge and outpatient management. Supportive therapies such as OTC throat lozenges and warm salt water gurgles were discussed. I have instructed the patient to follow-up with his/her primary care physician in 1-2 days. I have discussed with the patient the possibility of needing to see a specialist for further workup and imaging studies if symptoms persist. I have instructed the patient to promptly return to the ER for any new or worsening symptoms including increased pain, fever, nausea, vomiting, weakness or LOC. The patient and/or family expressed understanding of and agreement with this plan. All questions were answered. Home care instructions were provided. Departure Diagnosis: Primary Impression: Viral pharyngitis Condition: Stable Patient Instructions: Pharyngitis, Viral Referrals: [facility] Additional Instructions: Call your primary care doctor TOMORROW for an appointment during the next 1-2 days.See the doctor sooner or return here if your condition worsens before your appointment time. DONTAE CARDENAS PA-C Sep 12, 2016 21:17
== END 2016-09-12 21:17 | disposition home or self-care (01) ==
LOC: E/R 20:41
DX: J02.8 Acute pharyngitis due to other specified organisms (principal); B97.89 Other viral agents as the cause of diseases classified elsewhere
CPT/HCPCS: 99283

== ENCOUNTER 2016-10-15 12:34 | Emergency (ER) | payer OTHER ==
[~2016-10-15] VITALS: Ht 162.6 cm; Wt 94.5 kg
[~2016-10-15 12:34] MED LIST changes: +ONDA4TAB14 PO
[2016-10-15 12:43] VITALS: Ht 162.6 cm; Wt 94.5 kg
--- NOTE | 2016-10-15 13:31 | ERD ---
ER Documentation Chief Complaint Date/Time DATE: 10/15/16 TIME: 13:29 Chief Complaint ANXIETY ATTACK SINCE 1145 DRANK LAST NIGHT HPI This is a 36-year-old male presents to the emergency room for evaluation of anxiety. This patient states that he gets anxiety when he drinks alcohol, and states that he drank alcohol last night and his last drink was approximately 6 AM. The patient states that he was prescribed Ativan for his anxiety attacks which occur after alcohol in his dosage is 0.5 mg 3 times a day as needed. The patient came to the emergency room today to ask if he can take his Ativan if he drank alcohol 6 hours ago. The patient denies any other coingestions and came to the emergency room for further evaluation. He is denying any homicidal or suicidal ideation this time ROS All systems reviewed and are negative except as per history of present illness. Medications Home Meds Active Scripts Ondansetron (Ondansetron Odt) 4 Mg Tab.rapdis, 4 MG PO Q6H Y for NAUSEA AND/OR VOMITING, #10 TAB Prov:DONTAE CARDENAS PA-C 09/12/16 Ibuprofen* (Motrin*) 600 Mg Tab, 600 MG PO Q6, #30 TAB Prov:DONTAE CARDENAS PA-C 09/12/16 Loratadine* (Loratadine*) 10 Mg Tablet, 10 MG PO DAILY for NASAL CONGESTION, # 15 TAB Prov:EDWINA MINOR MD 09/11/16 Tramadol HCl (Tramadol HCl) 50 Mg Tablet, 50 MG PO TID for PAIN LEVEL 6-10, #12 TAB Prov:EDWINA MINOR MD 09/11/16 Vit B Cmplx 3/Fa/Vit C/Biotin (VOL-CARE RX TABLET) 1 Each Tablet, 1 EACH PO DAILY for 30 Days, TAB Prov:RUDOLPH MARADIAGA PA-C 08/29/16 Sodium Chloride (Saline Nasal [place]) 30 Ml [place], 30 ML NS BID, #1 SPRAY Prov:SURY HOFFMAN PA-C 08/05/16 Fluticasone Propionate (Flonase Allergy Relief) 9.9 Ml [place].susp, 1 SPRAY NASAL BID for 14 Days, #1 BOTTLE TO EACH NOSTRIL Prov:SURY HOFFMAN PA-C 08/05/16 Loratadine* (Claritin*) 10 Mg Tablet, 10 MG PO DAILY, #30 TAB Prov:SURY HOFFMAN PA-C 08/05/16 Oxymetazoline Hcl (Nasal [place]) 30 Ml Mist, 2 SPRAYS NASAL BID, #1 BOTTLE Prov:VIRGILIO FERRIS PA-C 06/23/16 Acetaminophen* (Tylophen*) 500 Mg Capsule, 1 CAP PO Q6H Y for PAIN AND OR ELEVATED TEMP, #20 CAP Prov:VIRGILIO FERRIS PA-C 06/23/16 Naproxen* (Naprosyn*) 500 Mg Tablet, 500 MG PO BID Y for PAIN AND/OR INFLAMMATION, #30 TAB Prov:VIRGILIO FERRIS PA-C 06/23/16 Cetirizine Hcl* (Zyrtec*) 10 Mg Capsule, 10 MG PO DAILY, #30 TAB.CHEW Prov:VIRGILIO FERRIS PA-C 06/23/16 Clotrimazole* (Clotrimazole* AF) 1% - 30 Gm Cream.gm., 1 APPLIC TOP BID for 7 Days, TUB Prov:DAVE LARIOS PA-C 05/03/16 Ibuprofen* (Motrin*) 600 Mg Tab, 600 MG PO Q6H Y for PAIN AND OR ELEVATED TEMP, #30 TAB Prov:KRYSTLE HERRERA NP 04/22/16 Amoxicillin* (Amoxicillin*) 500 Mg Cap, 500 MG PO TID for 7 Days, CAP Prov:OCTAVIA RACHEL PA-C 02/21/16 Ibuprofen* (Motrin*) 600 Mg Tab, 600 MG PO Q6, #20 TAB Prov:OCTAVIA RACHEL PA-C 02/21/16 Ibuprofen* (Motrin*) 600 Mg Tab, 600 MG PO Q6, #20 TAB Prov:OCTAVIA RACHEL PA-C 01/23/16 Diphenhydramine Hcl* (Benadryl*) 50 Mg Cap, 50 MG PO Q6H Y for ALLERGIC REACTION , #30 CAP Prov:NADEEN LEGGETT DO 07/20/15 Ranitidine Hcl* (Zantac*) 150 Mg Tablet, 150 MG PO BID for EPIGASTRIC PAIN, #30 TAB Prov:NADEEN LEGGETT DO 07/20/15 Prednisone* (Prednisone*) 20 Mg Tab, 60 MG PO DAILY, #15 TAB take 60 mg for 3 days, then 40 mg for 4 days, then 30 mg for 3 days. Prov:NADEEN LEGGETT DO 07/20/15 Benazepril Hcl* (Lotensin*) 20 Mg Tablet, 20 MG PO DAILY, #30 TAB Prov:DEVIN WYATT MD 06/21/15 Fluoxetine Hcl* (Fluoxetine Hcl*) 20 Mg Capsule, 20 MG PO DAILY, #30 CAP Prov:DEVIN WYATT MD 06/21/15 Lorazepam* (Ativan*) 0.5 Mg Tablet, 0.5 MG PO BID, #14 TAB Prov:DEVIN WYATT MD 06/21/15 Hydrochlorothiazide* (Hydrochlorothiazide*) 25 Mg Tab, 25 MG PO DAILY, #30 TAB Prov:EDWINA MINOR MD 06/20/15 Alprazolam* (Xanax*) 0.5 Mg Tab, 0.5 MG PO Q8H Y for ANXIETY, #10 TAB Prov:CAROLYN DOCKERY PA-C 06/14/15 Loratadine* (Claritin*) 10 Mg Capsule, 10 MG PO DAILY, #30 CAP Prov:KRYSTLE HERRERA NP 05/01/15 Reported Medications Pantoprazole (Protonix) 40 Mg Tabec, 40 PO DAILY, TAB 06/21/15 Allergies Allergies: Coded Allergies: paroxetine (Verified Allergy, Unknown, headache, 08/05/16) PMhx/Soc History of Surgery: No Anesthesia Reaction: No Hx Neurological Disorder: No Hx Respiratory Disorders: No Hx Cardiac Disorders: No Hx Psychiatric Problems: Yes (DEPRESSION, ANXIETY) Hx Alcohol Use: Yes Hx Substance Use: No Hx Tobacco Use: Yes Smoking Status: Current every day smoker Physical Exam Vitals Vital Signs Date Time Temp Pulse Resp B/P Pulse Ox O2 Delivery O2 Flow Rate FiO2 10/15/16 12:43 98.6 109 20 138/94 95 Physical Exam Const: No acute distress Head: Atraumatic Eyes: Normal Conjunctiva ENT: Normal External Ears, Nose and Mouth. Neck: Full range of motion..~ No meningismus. Resp: Clear to auscultation bilaterally Cardio: Regular rate and rhythm, no murmurs Abd: Soft, non tender, non distended. Normal bowel sounds Skin: No petechiae or rashes Back: No midline or flank tenderness Ext: No cyanosis, or edema Neur: Awake and alert, no focal neurological deficit Psych: Mildly anxious affect Procedures/MDM This 36-year-old male presents to the emergency room for evaluation of anxiety. The patient does state that he is prescribed Ativan for anxiety and wanted to ask if he can take Ativan if he drank 6 hours ago. When I evaluated this patient he was alert oriented to person place and time, does not smell of alcohol, and appeared to be clinically sober. Advised the patient he can take is 0.5 mg Ativan at this time however I discouraged any more Ativan until at least 12 hours after his last drink. The patient verbalized understanding, is denying homicidal ideation will be discharged home at this time. Smoking Cessation Therapy: Pt. was lectured for greater than 3 minutes on the health risks of continued smoking and the benefits of cessation. Departure Diagnosis: Primary Impression: Anxiety Additional Impressions: Tobacco abuse Tobacco abuse counseling Condition: Stable MAURICIO HOLLIS DO October 15, 2016 13:31
== END 2016-10-15 13:46 | disposition home or self-care (01) ==
LOC: FTE 12:34
DX: F41.9 Anxiety disorder, unspecified (principal); F17.210 Nicotine dependence, cigarettes, uncomplicated; Z71.6 Tobacco abuse counseling
CPT/HCPCS: 99282

== ENCOUNTER 2016-12-02 16:41 | Emergency (ER) | payer OTHER ==
[~2016-12-02] VITALS: Wt 94.1 kg
[2016-12-02] MEDS ORDERED: IBUPROFEN 600 MG TAB PO ONE (17:00)
--- NOTE | 2016-12-02 17:05 | ERD ---
ER Documentation Chief Complaint Date/Time DATE: 12/02/16 TIME: 17:03 Chief Complaint r. wrist sprain HPI This 36-year-old male presents emergency room for right wrist pain that hurts when he makes certain movements of his right wrist. He is now him any specific trauma to the area. As the pain is in the wrist area somewhat on the anterior radial area and somewhat posteriorly. This been painful for the last few days. He still able to use the hand normally. ROS All systems reviewed and are negative except as per history of present illness. Medications Home Meds Active Scripts Naproxen* (Naprosyn*) 500 Mg Tablet, 500 MG PO BID Y for PAIN AND/OR INFLAMMATION, #30 TAB Prov:SU FRANCIS DO 12/02/16 Ondansetron (Ondansetron Odt) 4 Mg Tab.rapdis, 4 MG PO Q6H Y for NAUSEA AND/OR VOMITING, #10 TAB Prov:DONTAE CARDENAS PA-C 09/12/16 Ibuprofen* (Motrin*) 600 Mg Tab, 600 MG PO Q6, #30 TAB Prov:DONTAE CARDENAS PA-C 09/12/16 Loratadine* (Loratadine*) 10 Mg Tablet, 10 MG PO DAILY for NASAL CONGESTION, # 15 TAB Prov:EDWINA MINOR MD 09/11/16 Tramadol HCl (Tramadol HCl) 50 Mg Tablet, 50 MG PO TID for PAIN LEVEL 6-10, #12 TAB Prov:EDWINA MINOR MD 09/11/16 Vit B Cmplx 3/Fa/Vit C/Biotin (VOL-CARE RX TABLET) 1 Each Tablet, 1 EACH PO DAILY for 30 Days, TAB Prov:RUDOLPH MARADIAGA PA-C 08/29/16 Sodium Chloride (Saline Nasal [place]) 30 Ml [place], 30 ML NS BID, #1 SPRAY Prov:SURY HOFFMAN PA-C 08/05/16 Fluticasone Propionate (Flonase Allergy Relief) 9.9 Ml [place].susp, 1 SPRAY NASAL BID for 14 Days, #1 BOTTLE TO EACH NOSTRIL Prov:SURY HOFFMAN PA-C 08/05/16 Loratadine* (Claritin*) 10 Mg Tablet, 10 MG PO DAILY, #30 TAB Prov:SURY HOFFMAN PA-C 08/05/16 Oxymetazoline Hcl (Nasal [place]) 30 Ml Mist, 2 SPRAYS NASAL BID, #1 BOTTLE Prov:VIRGILIO FERRIS PA-C 06/23/16 Acetaminophen* (Tylophen*) 500 Mg Capsule, 1 CAP PO Q6H Y for PAIN AND OR ELEVATED TEMP, #20 CAP Prov:VIRGILIO FERRIS PA-C 06/23/16 Naproxen* (Naprosyn*) 500 Mg Tablet, 500 MG PO BID Y for PAIN AND/OR INFLAMMATION, #30 TAB Prov:VIRGILIO FERRIS PA-C 06/23/16 Cetirizine Hcl* (Zyrtec*) 10 Mg Capsule, 10 MG PO DAILY, #30 TAB.CHEW Prov:VIRGILIO FERRIS PA-C 06/23/16 Clotrimazole* (Clotrimazole* AF) 1% - 30 Gm Cream.gm., 1 APPLIC TOP BID for 7 Days, TUB Prov:DAVE LARIOS PA-C 05/03/16 Ibuprofen* (Motrin*) 600 Mg Tab, 600 MG PO Q6H Y for PAIN AND OR ELEVATED TEMP, #30 TAB Prov:KRYSTLE HERRERA NP 04/22/16 Amoxicillin* (Amoxicillin*) 500 Mg Cap, 500 MG PO TID for 7 Days, CAP Prov:OCTAVIA RACHEL PA-C 02/21/16 Ibuprofen* (Motrin*) 600 Mg Tab, 600 MG PO Q6, #20 TAB Prov:OCTAVIA RACHEL PA-C 02/21/16 Ibuprofen* (Motrin*) 600 Mg Tab, 600 MG PO Q6, #20 TAB Prov:OCTAVIA RACHEL PA-C 01/23/16 Diphenhydramine Hcl* (Benadryl*) 50 Mg Cap, 50 MG PO Q6H Y for ALLERGIC REACTION , #30 CAP Prov:NADEEN LEGGETT DO 07/20/15 Ranitidine Hcl* (Zantac*) 150 Mg Tablet, 150 MG PO BID for EPIGASTRIC PAIN, #30 TAB Prov:NADEEN LEGGETT DO 07/20/15 Prednisone* (Prednisone*) 20 Mg Tab, 60 MG PO DAILY, #15 TAB take 60 mg for 3 days, then 40 mg for 4 days, then 30 mg for 3 days. Prov:OLEKSANDRNADEEN 07/20/15 Benazepril Hcl* (Lotensin*) 20 Mg Tablet, 20 MG PO DAILY, #30 TAB Prov:DEVIN WYATT MD 06/21/15 Fluoxetine Hcl* (Fluoxetine Hcl*) 20 Mg Capsule, 20 MG PO DAILY, #30 CAP Prov:DEVIN WYATT MD 06/21/15 Lorazepam* (Ativan*) 0.5 Mg Tablet, 0.5 MG PO BID, #14 TAB Prov:DEVIN WYATT MD 06/21/15 Hydrochlorothiazide* (Hydrochlorothiazide*) 25 Mg Tab, 25 MG PO DAILY, #30 TAB Prov:EDWINA MINOR MD 06/20/15 Alprazolam* (Xanax*) 0.5 Mg Tab, 0.5 MG PO Q8H Y for ANXIETY, #10 TAB Prov:CAROLYN DOCKERY PA-C 06/14/15 Loratadine* (Claritin*) 10 Mg Capsule, 10 MG PO DAILY, #30 CAP Prov:KRYSTLE HERRERA NP 05/01/15 Reported Medications Pantoprazole (Protonix) 40 Mg Tabec, 40 PO DAILY, TAB 06/21/15 Allergies Allergies: Coded Allergies: paroxetine (Verified Allergy, Unknown, headache, 08/05/16) PMhx/Soc History of Surgery: Yes (RIGHT WRIST SX) Anesthesia Reaction: No Hx Neurological Disorder: No Hx Respiratory Disorders: No Hx Cardiac Disorders: No Hx Psychiatric Problems: Yes (DEPRESSION, ANXIETY) Hx Alcohol Use: Yes Hx Substance Use: No Hx Tobacco Use: Yes (PACK/DAY) Smoking Status: Current every day smoker Physical Exam Vitals Vital Signs Date Time Temp Pulse Resp B/P Pulse Ox O2 Delivery O2 Flow Rate FiO2 12/02/16 16:49 98.0 80 20 138/98 96 Physical Exam Const: [] No distress Ext: No cyanosis, or edema, right wrist with very mild tenderness to the radius just posterior to the wrist both volar and dorsally, no pain to palpation of hand bones. Capillary refill less than 1 second with good radial pulse. Neur: Awake and alert Psych: Normal Mood and Affect Results 24 hrs Current Medications Medications (Trade) Dose Ordered Sig/Prashant Route PRN Reason Start Time Stop Time Status Last Admin Dose Admin Ibuprofen (Motrin) 600 mg ONCE ONCE PO 12/02/16 17:00 12/02/16 17:01 DC 12/02/16 17:08 Procedures/MDM Right wrist strain may or may not have anything to do with rounded off on the density of possible secondary ossification center. When supply the patient with a Velcro wrist splint as well as Naprosyn for pain. Am recommending orthopedic follow-up if the pain is not resolved. Phalen's and reverse Phalen' s tests were negative and patient had no pain on palpation or tapping of the volar wrist about the carpal tunnel so I do not suspect carpal tunnel syndrome. Return precautions to the ER given. ED splint application note: Velcro wrist splint was applied the patient's right wrist. I perform neurovascular assessment after this the patient was neurovascularly intact Right wrist x-ray interpretation: See no acute process, I see no acute fracture dislocation or soft tissue swelling or foreign body. Patient does have a secondary ossification center versus a very small old avulsion fracture of the ulna. Departure Diagnosis: Primary Impression: Strain of wrist, right Condition: Stable SU FRANCIS DO Dec 02, 2016 17:05
--- NOTE | 2016-12-02 18:10 | RADRPT ---
PROCEDURE: XR Wrist. CLINICAL INDICATION: Twisted right wrist with pain. TECHNIQUE: AP, lateral, navicular and oblique views of the right wrist were performed. COMPARISON: No prior studies are available for comparison. FINDINGS: There is a small bone density adjacent to the right ulnar styloid process. The radius, carpal bones and metacarpal bones are intact. IMPRESSION: 1. No acute fracture is identified. 2. Accessory ossification center versus nonunion of an old fracture of the right ulnar styloid proc ess. 3. The navicular bone is intact. RPTAT:AAJJ Physician Kayla Date Time Electronically viewed and signed by Rl Lord Physician on 12/02/2016 18:10 /
[2016-12-02] MEDS ORDERED: NAPR-260 PO (18:18)
== END 2016-12-02 19:21 | disposition home or self-care (01) ==
LOC: FTE 16:41
DX: S66.911A Strain of unspecified muscle, fascia and tendon at wrist and hand level, right hand, initial encounter (principal); F17.210 Nicotine dependence, cigarettes, uncomplicated; X58.XXXA Exposure to other specified factors, initial encounter; Y92.9 Unspecified place or not applicable
CPT/HCPCS: 29125; 73110; Z7502; Z7610

== ENCOUNTER 2017-07-10 11:58 | Emergency (ER) | END 2017-07-10 13:00 | disposition left against medical advice (07) ==

== ENCOUNTER 2017-11-28 20:56 | Emergency (ER) | END 2017-11-29 01:14 | disposition home or self-care (01) ==

== ENCOUNTER 2018-04-02 23:34 | Emergency (ER) | END 2018-04-03 03:06 | disposition home or self-care (01) ==

== ENCOUNTER 2018-04-16 13:30 | Emergency (ER) | END 2018-04-16 15:14 | disposition home or self-care (01) ==

== ENCOUNTER 2018-05-01 22:44 | Emergency (ER) | END 2018-05-02 00:20 | disposition home or self-care (01) ==

== ENCOUNTER 2018-06-13 12:00 | Emergency (ER) | payer OTHER ==
[~2018-06-13] VITALS: Ht 167.6 cm; Wt 90.9 kg
[~2018-06-13 12:00] MED LIST changes: -AMO500 PO; +AMOX500C2 PO; +BENZ-6 PO; +FIORICET PO; +FLUO10CA17 PO; -HYD25 PO; +HYDR25TA6 PO; +LORA1TAB PO; -NAPR-260 PO; +NAPR-985 PO; +RANI150T35 PO; -RANI150T9 PO
[2018-06-13 12:06] VITALS: Ht 167.6 cm; Wt 90.9 kg
[2018-06-13] MEDS ORDERED: SOD CHLORIDE 0.9% 1,000 ML IV STA (12:51)
--- NOTE | 2018-06-13 12:59 | ERD ---
ER Documentation Chief Complaint Chief Complaint Complains of Excessive drinking and Etoh poisoning, patient is anxious HPI Patient is a 37-year-old male with anxiety and hypertension who presents with a :major anxiety attack". The patient was brought in by ambulance. The patient said that he did not eat anything yesterday but drank more than 12 beers. He said that his pulse rate was 150 this morning that gave him anxiety so he called 911. He did not take his Prozac or Ativan over the past 2 days because he had been drinking. Upon review of old medical records this patient has had multiple visits to the ER for various complaints. ROS All systems reviewed and are negative except as per history of present illness. Medications Home Meds Active Scripts Acetamin/Butalbital/Caffeine* (Fioricet*) [id number] Tab, 1 TAB PO Q6H PRN for PAIN, #30 TAB Prov:CAROLYN DOCKERY PA-C 04/16/18 Ondansetron (Ondansetron Odt) 4 Mg Tab.rapdis, 4 MG PO Q6H PRN for NAUSEA AND/OR VOMITING, #10 TAB Prov:CAROLYN DOCKERY PA-C 04/16/18 Lorazepam* (Lorazepam*) 1 Mg Tablet, 1 MG PO BID, #4 TAB Prov:CLAU,HEATHER 04/03/18 Alprazolam* (Xanax*) 0.5 Mg Tab, 0.5 MG PO Q8H PRN for ANXIETY, #15 TAB Prov:ASHLY HERRERA 11/29/17 Fluoxetine Hcl* (Fluoxetine Hcl*) 10 Mg Capsule, 5 MG PO DAILY, #15 CAP Prov:ASHLY HERRERA 11/29/17 Benzonatate* (Tessalon Perle*) 100 Mg Capsule, 100 MG PO Q8H PRN for COUGH, #20 CAP Prov:ASHLY HERRERA 11/29/17 Naproxen* (Naprosyn*) 500 Mg Tablet, 500 MG PO BID PRN for PAIN AND/OR INFLAMMATION, #30 TAB Prov:SU FRANCIS DO 12/02/16 Ondansetron (Ondansetron Odt) 4 Mg Tab.rapdis, 4 MG PO Q6H PRN for NAUSEA AND/OR VOMITING, #10 TAB Prov:DONTAE CARDENAS PA-C 09/12/16 Ibuprofen* (Motrin*) 600 Mg Tab, 600 MG PO Q6, #30 TAB Prov:DONTAE CARDENAS PA-C 09/12/16 Loratadine* (Loratadine*) 10 Mg Tablet, 10 MG PO DAILY for NASAL CONGESTION, #15 TAB Prov:EDWINA MINOR MD 09/11/16 Tramadol HCl (Tramadol HCl) 50 Mg Tablet, 50 MG PO TID for PAIN LEVEL 6-10, #12 TAB Prov:EDWINA MINOR MD 09/11/16 Vit B Cmplx 3/Fa/Vit C/Biotin (VOL-CARE RX TABLET) 1 Each Tablet, 1 EACH PO DAILY for 30 Days, TAB Prov:RUDOLPH MARADIAGA PA-C 08/29/16 Sodium Chloride (Saline Nasal [place]) 30 Ml [place], 30 ML NS BID, #1 SPRAY Prov:SURY HOFFMAN PA-C 08/05/16 Fluticasone Propionate (Flonase Allergy Relief) 9.9 Ml [place].susp, 1 SPRAY NASAL BID for 14 Days, #1 BOTTLE TO EACH NOSTRIL Prov:SURY HOFFMAN PA-C 08/05/16 Loratadine* (Claritin*) 10 Mg Tablet, 10 MG PO DAILY, #30 TAB Prov:SURY HOFFMAN PA-C 08/05/16 Oxymetazoline Hcl (Nasal [place]) 30 Ml Mist, 2 SPRAYS NASAL BID, #1 BOTTLE Prov:VIRGILIO FERRIS PA-C 06/23/16 Acetaminophen* (Tylophen*) 500 Mg Capsule, 1 CAP PO Q6H PRN for PAIN AND OR ELEVATED TEMP, #20 CAP Prov:VIRGILIO FERRIS PA-C 06/23/16 Naproxen* (Naprosyn*) 500 Mg Tablet, 500 MG PO BID PRN for PAIN AND/OR INFLAMMATION, #30 TAB Prov:VIRGILIO FERRIS PA-C 06/23/16 Cetirizine Hcl* (Zyrtec*) 10 Mg Capsule, 10 MG PO DAILY, #30 TAB.CHEW Prov:VIRGILIO FERRIS PA-C 06/23/16 Clotrimazole* (Clotrimazole* AF) 1% - 30 Gm Cream.gm., 1 APPLIC TOP BID for 7 Days, TUB Prov:DAVE LARIOS PA-C 05/03/16 Ibuprofen* (Motrin*) 600 Mg Tab, 600 MG PO Q6H PRN for PAIN AND OR ELEVATED TEMP, #30 TAB Prov:KRYSTLE HERRERA NP 04/22/16 Amoxicillin* (Amoxicillin*) 500 Mg Cap, 500 MG PO TID for 7 Days, CAP Prov:OCTAVIA RACHEL PA-C 02/21/16 Ibuprofen* (Motrin*) 600 Mg Tab, 600 MG PO Q6, #20 TAB Prov:OCTAVIA RACHEL PA-C 02/21/16 Ibuprofen* (Motrin*) 600 Mg Tab, 600 MG PO Q6, #20 TAB Prov:OCTAVIA RACHEL PA-C 01/23/16 Diphenhydramine Hcl* (Benadryl*) 50 Mg Cap, 50 MG PO Q6H PRN for ALLERGIC REACTION, #30 CAP Prov:NADEEN LEGGETT DO 07/20/15 Ranitidine Hcl* (Zantac*) 150 Mg Tablet, 150 MG PO BID for EPIGASTRIC PAIN, #30 TAB Prov:NADEEN LEGGETT DO 07/20/15 Prednisone* (Prednisone*) 20 Mg Tab, 60 MG PO DAILY, #15 TAB take 60 mg for 3 days, then 40 mg for 4 days, then 30 mg for 3 days. Prov:NADEEN LEGGETT DO 07/20/15 Benazepril Hcl* (Lotensin*) 20 Mg Tablet, 20 MG PO DAILY, #30 TAB Prov:DEVIN WYATT MD 06/21/15 Fluoxetine Hcl* (Fluoxetine Hcl*) 20 Mg Capsule, 20 MG PO DAILY, #30 CAP Prov:DEVIN WYATT MD 06/21/15 Lorazepam* (Ativan*) 0.5 Mg Tablet, 0.5 MG PO BID, #14 TAB Prov:DEVIN WYATT MD 06/21/15 Hydrochlorothiazide* (Hydrochlorothiazide*) 25 Mg Tab, 25 MG PO DAILY, #30 TAB Prov:EDWINA MINOR MD 06/20/15 Alprazolam* (Xanax*) 0.5 Mg Tab, 0.5 MG PO Q8H PRN for ANXIETY, #10 TAB Prov:CAROLYN DOCKERY PA-C 06/14/15 Loratadine* (Claritin*) 10 Mg Capsule, 10 MG PO DAILY, #30 CAP Prov:PACHECOLIASKRYSTLE NP 05/01/15 Reported Medications Pantoprazole (Protonix) 40 Mg Tabec, 40 PO DAILY, TAB 06/21/15 Allergies Allergies: Coded Allergies: paroxetine (Verified Allergy, Unknown, headache, 05/01/18) PMhx/Soc History of Surgery: Yes (RIGHT WRIST SX) Anesthesia Reaction: No Hx Neurological Disorder: No Hx Respiratory Disorders: No Hx Cardiac Disorders: No Hx Psychiatric Problems: Yes (DEPRESSION, ANXIETY) Hx Alcohol Use: Yes Hx Substance Use: Yes (marijuana) Hx Tobacco Use: Yes (PACK/DAY) FmHx Family History: No diabetes Physical Exam Vitals Vital Signs Date Temp Pulse Resp B/P (MAP) Pulse Ox O2 O2 Flow FiO2 Time Delivery Rate 06/13/18 79 18 141/84 98 Room Air 13:11 (103) 06/13/18 97.6 95 16 141/97 94 12:06 (112) Physical Exam Const: No acute distress Head: Atraumatic Eyes: Normal Conjunctiva ENT: Normal External Ears, Nose and Mouth. Neck: Full range of motion. No meningismus. Resp: Clear to auscultation bilaterally Cardio: Regular rate and rhythm, no murmurs Abd: Soft, non tender, non distended. Normal bowel sounds Skin: No petechiae or rashes Back: No midline or flank tenderness Ext: No cyanosis, or edema Neur: Awake and alert Psych: Normal Mood and Affect Results 24 hrs Current Medications Medications Dose Sig/Prashant Start Time Status Last (Trade) Ordered Route PRN Stop Time Admin Dose Reason Admin Lorazepam 1 mg ONCE ONCE 06/13/18 DC 06/13/18 (Ativan) PO 13:00 06/13/18 13:05 13:01 Fluoxetine 20 mg ONCE ONCE 06/13/18 DC 06/13/18 HCl PO 13:00 06/13/18 13:05 (Prozac) 13:01 Sodium 1,000 ml @ Q1H STAT 06/13/18 06/13/18 Chloride 1,000 mls/hr IV 12:51 06/13/18 13:01 13:50 Procedures/MDM EKG read by me: Rate/Rhythm: Regular rate and rhythm at a rate of 83 Intervals: Normal Impression: No evidence of ischemia or arrhythmia Patient is a 37-year-old male who presents with anxiety. His EKG is normal and his heart rate is normal. He was given Prozac and Ativan in the emergency department. I doubt serious arrhythmia or other serious etiology. I doubt delirium tremens. I believe outpatient management is appropriate at this time. The patient will need close follow-up with his primary doctor within 24-48 hours. He should not drink to excess. Departure Diagnosis: Primary Impression: Alcohol withdrawal Complication of substance-induced condition: uncomplicated Qualified Codes: F10.230 - Alcohol dependence with withdrawal, uncomplicated Additional Impression: Anxiety Condition: Fair Patient Instructions: Your Body's Response to Anxiety, Alcohol Withdrawal Additional Instructions: Call your primary care doctor TOMORROW for an appointment during the next 1-2 days.See the doctor sooner or return here if your condition worsens before your appointment time. KORI PADGETT MD Jun 13, 2018 12:59
[2018-06-13] MEDS ORDERED: LORAZEPAM 1 MG TAB PO ONE (13:00)
[2018-06-13] MEDS ORDERED: FLUOXETINE 20 MG CAP PO ONE (13:00)
[2018-06-13 13:11] VITALS: BP 141/84; PULSE 79; RESP 18
== END 2018-06-13 13:00 | disposition home or self-care (01) ==
LOC: E/R 12:00
DX: F10.230 Alcohol dependence with withdrawal, uncomplicated (principal); I10 Essential (primary) hypertension; Z87.891 Personal history of nicotine dependence
CPT/HCPCS: 36415; 93005; J7030; Z7502; Z7610

== ENCOUNTER 2018-07-02 20:48 | Emergency (ER) | payer SELFPAY | END 2018-07-02 20:55 | disposition left against medical advice (07) | LOC: E/R 20:48 | DX: Z53.21 Procedure and treatment not carried out due to patient leaving prior to being seen by health care provider (principal) ==